=== PATIENT | female | born 1945 | race Caucasian/White ===

== ENCOUNTER 2019-11-04 20:11 | Inpatient (IN) | payer OTHER ==
[~2019-11-04] VITALS: Ht 167.6 cm; Wt 56.1 kg
--- NOTE | 2019-11-04 20:51 | NUR ---
STROKE ALERT CALLED OFF BY KIM JOHNSON
[2019-11-04 20:58] LABS: BASOPHILS % (AUTO) 0.3 % (0-1); EOSINOPHILS % (AUTO) 0.1 % (0-6); HEMATOCRIT 42.9 % (35.0-45.0); HEMOGLOBIN 14.1 g/dl (12.0-16.0); LYMPHOCYTES # (AUTO) 0.4 X10'3 (1.1-4.8); LYMPHOCYTES % (AUTO) 5.7 % (21-51); MEAN CORPUSCULAR HEMOGLOBIN 30.4 PG (27.0-31.0); MEAN CORPUSCULAR HGB CONC 32.9 g/dL (33.0-36.5); MEAN CORPUSCULAR VOLUME 92.5 FL (78-98); MEAN PLATELET VOLUME 9.4 FL (7.4-10.4); MONOCYTES # (AUTO) 0.4 X10'3 (0-0.9); MONOCYTES % (AUTO) 6.6 % (2-12); NEUTROPHILS # (AUTO) 5.7 X10'3 (1.8-7.7); NEUTROPHILS % (AUTO) 87.3 % (42-75); PLATELET COUNT 153 X10'3 (140-440); RED BLOOD COUNT 4.63 X10'6 (4.20-5.60); RED CELL DISTRIBUTION WIDTH 13.8 % (11.5-14.5); WHITE BLOOD COUNT 6.5 X10'3 (4.5-11.0)
[2019-11-04 21:14] LABS: ALANINE AMINOTRANSFERASE 16 U/L (12-78); ALBUMIN 3.6 G/DL (3.4-5.0); ALKALINE PHOSPHATASE 58 IU/L (46-116); ANION GAP 7 (8-16); ASPARTATE AMINO TRANSFERASE 14 U/L (10-37); BILIRUBIN,TOTAL 0.4 MG/DL (0.1-1.0); BLOOD UREA NITROGEN 17 MG/DL (7-18); BUN/CREATININE RATIO 20.5 (6.6-38.0); CALCIUM 9.2 MG/DL (8.5-10.1); CHLORIDE 101 MMOL/L (99-107); CREATININE 0.83 MG/DL (0.40-0.90); GLUCOSE 102 MG/DL (70-104); POTASSIUM 3.8 MMOL/L (3.5-5.1); SODIUM 139 MMOL/L (135-145); TOTAL PROTEIN 7.1 G/DL (6.4-8.2); eGFR 67 ML/MIN
[2019-11-04 21:17] LABS: TROPONIN I < 0.04 NG/ML (0.0-0.05)
[2019-11-04 21:23] LABS: PARTIAL THROMBOPLASTIN TIME 26 SECONDS (22-32)
[2019-11-04 22:06] LABS: CLARITY,URINE SLIGHTLY CLOUDY (Clear); COLOR,URINE YELLOW (Yellow); GLUCOSE, URINE NEGATIVE (Neg); KETONES,URINE NEGATIVE (Neg); LEUKOCYTE ESTERASE ,URINE NEGATIVE (Neg); NITRITES, URINE NEGATIVE (Neg); OCCULT BLOOD,URINE NEGATIVE (Neg); PROTEIN,URINE NEGATIVE (Neg); UROBILINOGEN,URINE 0.2 E.U/dL (0.2-1.0)
[2019-11-04 22:14] LABS: UA COLLECTION TYPE CLN CATCH MIDSTREAM
[2019-11-04 22:15] LABS: AMORPHOUS PHOSPHATES 2+; BACTERIA,URINE FEW /HPF (Neg); RBC,URINE NONE SEEN /HPF (0-2); SQUAMOUS EPITHELIAL CELL,UR FEW /LPF (FEW); WBC,URINE NONE SEEN /HPF (0-4)
[2019-11-04] MEDS ORDERED: ondansetron/PF 4mg/2ml inj IV PRN (23:50)
[2019-11-04] MEDS ORDERED: acetaminophen 325mg tablet PO PRN (23:50)
[2019-11-04] MEDS ORDERED: magnesium hydroxide 30ml (MOM) UD suspension PO PRN (23:50)
[2019-11-04] MEDS ORDERED: mag hydrox/Alum hydrox/simeth 30ml oral suspension PO PRN (23:50)
[2019-11-05] MEDS ORDERED: THYR90TA12 PO (00:13)
[2019-11-05] MEDS ORDERED: ESCI20TA PO (00:13)
[2019-11-05] MEDS ORDERED: CHOL400T57 PO (00:13)
[2019-11-05] MEDS ORDERED: VITA-268 PO (00:14)
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
[2019-11-05 02:00] VITALS: BP 173/89
--- NOTE | 2019-11-05 02:51 | NUR ---
patient calm now. offered her tea and she allowed MRSA swab and physical assessment. VS taken and patient laying down resting. Refused to have both upper rails up. only 1 side is up at this time, per her request.
[2019-11-05 06:00] VITALS: BP 148/70
--- NOTE | 2019-11-05 06:07 | NUR ---
Problems reprioritized. Patient report given, questions answered & plan of care reviewed with JONA Levy.
--- NOTE | 2019-11-05 06:10 | NUR ---
Patient in room ORTHO 4010. I have received report from JONA Marques and had the opportunity to ask questions and assume patient care.
[2019-11-05 06:32] LABS: BASOPHILS % (AUTO) 0.2 % (0-1); EOSINOPHILS % (AUTO) 0 % (0-6); HEMATOCRIT 43.5 % (35.0-45.0); HEMOGLOBIN 14.4 g/dl (12.0-16.0); LYMPHOCYTES # (AUTO) 0.3 X10'3 (1.1-4.8); LYMPHOCYTES % (AUTO) 5.7 % (21-51); MEAN CORPUSCULAR HEMOGLOBIN 30.6 PG (27.0-31.0); MEAN CORPUSCULAR HGB CONC 33.2 g/dL (33.0-36.5); MEAN CORPUSCULAR VOLUME 92.1 FL (78-98); MEAN PLATELET VOLUME 10.4 FL (7.4-10.4); MONOCYTES # (AUTO) 0.3 X10'3 (0-0.9); MONOCYTES % (AUTO) 4.4 % (2-12); NEUTROPHILS # (AUTO) 5.4 X10'3 (1.8-7.7); NEUTROPHILS % (AUTO) 89.7 % (42-75); PLATELET COUNT 150 X10'3 (140-440); RED BLOOD COUNT 4.72 X10'6 (4.20-5.60); RED CELL DISTRIBUTION WIDTH 13.9 % (11.5-14.5)
[2019-11-05 06:51] LABS: ALANINE AMINOTRANSFERASE 15 U/L (12-78); ALBUMIN 3.9 G/DL (3.4-5.0); ALKALINE PHOSPHATASE 65 IU/L (46-116); ANION GAP 9 (8-16); ASPARTATE AMINO TRANSFERASE 15 U/L (10-37); BILIRUBIN,TOTAL 0.6 MG/DL (0.1-1.0); BLOOD UREA NITROGEN 13 MG/DL (7-18); BUN/CREATININE RATIO 16.7 (6.6-38.0); CHLORIDE 100 MMOL/L (99-107); CREATININE 0.78 MG/DL (0.40-0.90); GLUCOSE 105 MG/DL (70-104); POTASSIUM 3.2 MMOL/L (3.5-5.1); SODIUM 138 MMOL/L (135-145); TOTAL PROTEIN 7.8 G/DL (6.4-8.2); eGFR 72 ML/MIN
[2019-11-05] MEDS: heparin, porcine 5000 units/ml vial SQ SCH ×2 (08:00→19:26)
[2019-11-05 10:00] VITALS: BP 140/70
[2019-11-05] MEDS ORDERED: magnesium Cl slow-release 64mg tablet PO PRN (10:25)
[2019-11-05] MEDS: K and/or MAG REPLACEMENT MC SCH ×2 (10:25→19:25)
[2019-11-05] MEDS ORDERED: potassium CL 10mEq/100ml bag 100 ML IV PRN (10:25)
[2019-11-05] MEDS ORDERED: potassium Cl 20 mEq SR tablet PO PRN (10:25)
[2019-11-05] MEDS ORDERED: magnesium 4gm in 100ml NS 100 ML IV PRN (10:25)
[2019-11-05] MEDS: potassium Cl 20 mEq SR tablet PO PRN ×2 (11:27→19:28)
[2019-11-05 18:00] VITALS: BP 143/85
[2019-11-05] MEDS ORDERED: LORazepam 2 mg/ml vial IV ONE (21:20)
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
[2019-11-05 22:00] VITALS: BP 143/76
--- NOTE | 2019-11-06 06:30 | NUR ---
0600 VITALS NOT DONE, PT REFUSED
--- NOTE | 2019-11-06 06:32 | NUR ---
Problems reprioritized. Patient report given, questions answered & plan of care reviewed with JONA Bustillo.
--- NOTE | 2019-11-06 06:39 | NUR ---
A teleneuro exam by the [facility] [place] was done last night around 20:30. The exam was done for acute AMS changes and the report from neurologist is still pending at this time. No report found in records at this time.
--- NOTE | 2019-11-06 06:44 | NUR ---
Patient in room ORTHO 4010A. I have received report from JONA Marques and had the opportunity to ask questions and assume patient care.
[2019-11-06 06:48] LABS: BASOPHILS % (AUTO) 0.3 % (0-1); EOSINOPHILS % (AUTO) 0 % (0-6); HEMATOCRIT 39.5 % (35.0-45.0); HEMOGLOBIN 13.1 g/dl (12.0-16.0); LYMPHOCYTES # (AUTO) 0.8 X10'3 (1.1-4.8); LYMPHOCYTES % (AUTO) 15.7 % (21-51); MEAN CORPUSCULAR HEMOGLOBIN 30.5 PG (27.0-31.0); MEAN CORPUSCULAR HGB CONC 33.3 g/dL (33.0-36.5); MEAN CORPUSCULAR VOLUME 91.6 FL (78-98); MEAN PLATELET VOLUME 9.8 FL (7.4-10.4); MONOCYTES # (AUTO) 0.6 X10'3 (0-0.9); MONOCYTES % (AUTO) 12.8 % (2-12); NEUTROPHILS # (AUTO) 3.6 X10'3 (1.8-7.7); NEUTROPHILS % (AUTO) 71.2 % (42-75); PLATELET COUNT 122 X10'3 (140-440); RED BLOOD COUNT 4.31 X10'6 (4.20-5.60); RED CELL DISTRIBUTION WIDTH 13.5 % (11.5-14.5)
[2019-11-06 06:58] LABS: ALANINE AMINOTRANSFERASE 13 U/L (12-78); ALBUMIN 3.2 G/DL (3.4-5.0); ALBUMIN/GLOBULIN RATIO 0.9 (1.1-1.5); ALKALINE PHOSPHATASE 50 IU/L (46-116); ANION GAP 8 (8-16); ASPARTATE AMINO TRANSFERASE 16 U/L (10-37); BILIRUBIN,TOTAL 0.3 MG/DL (0.1-1.0); BLOOD UREA NITROGEN 11 MG/DL (7-18); BUN/CREATININE RATIO 16.4 (6.6-38.0); CALCIUM 8.6 MG/DL (8.5-10.1); CHLORIDE 104 MMOL/L (99-107); CREATININE 0.67 MG/DL (0.40-0.90); GLUCOSE 93 MG/DL (70-104); MAGNESIUM 1.9 MG/DL (1.5-2.4); PHOSPHORUS 2.7 MG/DL (2.3-4.5); POTASSIUM 3.7 MMOL/L (3.5-5.1); SODIUM 140 MMOL/L (135-145); TOTAL CARBON DIOXIDE 27.6 MMOL/L (24-32); TOTAL PROTEIN 6.6 G/DL (6.4-8.2); eGFR 86 ML/MIN
[2019-11-06] MEDS: K and/or MAG REPLACEMENT MC SCH ×2 (07:16→19:38)
[2019-11-06] MEDS: heparin, porcine 5000 units/ml vial SQ SCH ×2 (08:00→19:38)
[2019-11-06 10:00] VITALS: BP 123/74
[2019-11-06] MEDS: ESCITALOPRAM OXALATE 5 MG TABLET PO SCH (10:45)
[2019-11-06] MEDS: vitamin B comp w/Vit. C tab 1 TAB TABLET PO SCH (10:45)
--- NOTE | 2019-11-06 14:20 | NUR ---
TELENEURO CONSULT DONE, JONA CANALES HELPED. PTS WAS ALSO BEDSIDE TO HELP ANSWER QUESTIONS. REPORT PENDING.
--- NOTE | 2019-11-06 15:26 | NUR ---
Page Sent PAGER ID: [phone] MESSAGE: [id number]: PEPPER RODRIGUES [id number]...PT TELENEURO CONSULT REPORT IS BACK
[2019-11-06 18:00] VITALS: BP 135/68
--- NOTE | 2019-11-06 18:17 | NUR ---
Problems reprioritized. Patient report given, questions answered & plan of care reviewed with JONA GOVEA.
--- NOTE | 2019-11-06 18:18 | NUR ---
Patient in room ORTHO 4010. I have received report from Iwona TENORIO and had the opportunity to ask questions and assume patient care.
[2019-11-06 22:00] VITALS: BP 168/83
[2019-11-07 06:00] VITALS: BP 158/79
--- NOTE | 2019-11-07 06:08 | NUR ---
Problems reprioritized. Patient report given, questions answered & plan of care reviewed with Iwona TENORIO.
--- NOTE | 2019-11-07 06:25 | NUR ---
Patient in room ORTHO 4009C. I have received report from JONA Patricia and had the opportunity to ask questions and assume patient care.
[2019-11-07 06:54] LABS: BASOPHILS % (AUTO) 0.4 % (0-1); EOSINOPHILS # (AUTO) 0.1 X10'3 (0-0.9); HEMATOCRIT 39.8 % (35.0-45.0); HEMOGLOBIN 13.1 g/dl (12.0-16.0); LYMPHOCYTES # (AUTO) 1.1 X10'3 (1.1-4.8); LYMPHOCYTES % (AUTO) 23.7 % (21-51); MEAN CORPUSCULAR HEMOGLOBIN 30.3 PG (27.0-31.0); MEAN PLATELET VOLUME 9.9 FL (7.4-10.4); MONOCYTES # (AUTO) 0.7 X10'3 (0-0.9); MONOCYTES % (AUTO) 14.8 % (2-12); NEUTROPHILS # (AUTO) 2.9 X10'3 (1.8-7.7); NEUTROPHILS % (AUTO) 59.1 % (42-75); PLATELET COUNT 143 X10'3 (140-440); RED BLOOD COUNT 4.33 X10'6 (4.20-5.60); RED CELL DISTRIBUTION WIDTH 13.8 % (11.5-14.5); WHITE BLOOD COUNT 4.8 X10'3 (4.5-11.0)
[2019-11-07 07:18] LABS: ALANINE AMINOTRANSFERASE 15 U/L (12-78); ALBUMIN 3.2 G/DL (3.4-5.0); ALBUMIN/GLOBULIN RATIO 0.9 (1.1-1.5); ALKALINE PHOSPHATASE 52 IU/L (46-116); ANION GAP 8 (8-16); ASPARTATE AMINO TRANSFERASE 15 U/L (10-37); BILIRUBIN,TOTAL 0.4 MG/DL (0.1-1.0); BLOOD UREA NITROGEN 12 MG/DL (7-18); BUN/CREATININE RATIO 19.7 (6.6-38.0); CALCIUM 9.1 MG/DL (8.5-10.1); CHLORIDE 104 MMOL/L (99-107); CREATININE 0.61 MG/DL (0.40-0.90); GLUCOSE 125 MG/DL (70-104); PHOSPHORUS 2.8 MG/DL (2.3-4.5); POTASSIUM 3.5 MMOL/L (3.5-5.1); SODIUM 141 MMOL/L (135-145); TOTAL CARBON DIOXIDE 28.8 MMOL/L (24-32); TOTAL PROTEIN 6.9 G/DL (6.4-8.2); eGFR > 90 ML/MIN
[2019-11-07] MEDS: vitamin B comp w/Vit. C tab 1 TAB TABLET PO SCH (07:46)
[2019-11-07] MEDS: ESCITALOPRAM OXALATE 5 MG TABLET PO SCH (07:47)
[2019-11-07] MEDS: K and/or MAG REPLACEMENT MC SCH (07:53)
[2019-11-07] MEDS: heparin, porcine 5000 units/ml vial SQ SCH (07:56)
--- NOTE | 2019-11-07 10:38 | NUR ---
SENT PAGE TO EEG
--- NOTE | 2019-11-07 12:37 | NUR ---
Meeting with Dr Og, pt and pt's , Evaristo, was agreed that they would wait on the lumbar puncture and that they would monitor for fever at home.
[2019-11-07] MEDS ORDERED: THY60T PO (12:58)
--- NOTE | 2019-11-07 14:47 | NUR ---
DC INSTRUCTIONS GIVEN TO PT & OKSANA WILSON. PT HAD NO IV. PT DRESSED AND WHEELED DOWN TO PRIVATE VEHICLE IN STABLE CONDITION.
== END 2019-11-07 13:30 | disposition home health service (06) | DRG 884 ==
LOC: ER 20:13 → ED HOLD 23:49 → OBSVTOIN 23:49 → ED HOLD 23:51 → UNDOADMOB 23:51 → ORTHO 4S 11-05 01:45 → ED HOLD 11-05 01:45 → ORTHO 4S 11-06 20:20
PROVIDERS: ADMIT Internal Medicine; ATTEND Family Medicine
PROC: 4A10X4Z Monitoring of Central Nervous Electrical Activity, External Approach (ICD-10-PCS; principal; 2019-11-07)
DX: F03.90 Unspecified dementia, unspecified severity, without behavioral disturbance, psychotic disturbance, mood disturbance, and anxiety (principal); E78.5 Hyperlipidemia, unspecified; E03.9 Hypothyroidism, unspecified; E05.90 Thyrotoxicosis, unspecified without thyrotoxic crisis or storm; E87.6 Hypokalemia; F41.8 Other specified anxiety disorders; Z20.828 Contact with and (suspected) exposure to other viral communicable diseases; Z79.899 Other long term (current) drug therapy
CPT/HCPCS: 36415; 70544; 70551; 71045; 80053; 81001; 82140; 82607; 82948; 83605; 83735; 84100; 84145; 84439; 84443; 84484; 85025; 85610; 85730; 86592; 87040; 87081; 87635; 93005; 93306; 93880; 95816; 99285; G0378; J1644; J2060

== ENCOUNTER 2021-03-18 11:35 | Emergency (ER) | payer MEDICARE, OTHER ==
[~2021-03-18] VITALS: Ht 167.6 cm; Wt 59.9 kg
[~2021-03-18 11:35] MED LIST: CHOL400T57 PO; ESCI20TA PO; VITA-268 PO
[2021-03-18 12:45] VITALS: BP 167/78
== END 2021-03-18 14:00 | disposition home or self-care (01) ==
LOC: ER 11:36
DX: S00.33XA Contusion of nose, initial encounter (principal); S50.311A Abrasion of right elbow, initial encounter; S09.90XA Unspecified injury of head, initial encounter; F03.91 Unspecified dementia, unspecified severity, with behavioral disturbance; E03.9 Hypothyroidism, unspecified; F31.9 Bipolar disorder, unspecified; W18.30XA Fall on same level, unspecified, initial encounter; Y93.89 Activity, other specified; Y92.89 Other specified places as the place of occurrence of the external cause; Y99.8 Other external cause status
CPT/HCPCS: 70450; 70486; 72125; 99284

== ENCOUNTER 2021-11-17 19:33 | Emergency (ER) | payer OTHER ==
[~2021-11-17] VITALS: Ht 167.6 cm; Wt 61.4 kg
[2021-11-17 20:12] LABS: BASOPHILS % (AUTO) 0.8 % (0-1); EOSINOPHILS % (AUTO) 0.7 % (0-6); HEMATOCRIT 41.9 % (35.0-45.0); HEMOGLOBIN 13.8 g/dl (12.0-16.0); LYMPHOCYTES # (AUTO) 1.2 X10'3 (1.1-4.8); LYMPHOCYTES % (AUTO) 28.3 % (21-51); MEAN CORPUSCULAR HGB CONC 32.9 g/dL (33.0-36.5); MEAN CORPUSCULAR VOLUME 87.9 FL (78-98); MEAN PLATELET VOLUME 9.8 FL (7.4-10.4); MONOCYTES # (AUTO) 0.4 X10'3 (0-0.9); MONOCYTES % (AUTO) 9.6 % (2-12); NEUTROPHILS # (AUTO) 2.5 X10'3 (1.8-7.7); NEUTROPHILS % (AUTO) 60.6 % (42-75); PLATELET COUNT 174 X10'3 (140-440); RED BLOOD COUNT 4.77 X10'6 (4.20-5.60); RED CELL DISTRIBUTION WIDTH 13.4 % (11.5-14.5); WHITE BLOOD COUNT 4.1 X10'3 (4.5-11.0)
[2021-11-17 20:38] LABS: ALANINE AMINOTRANSFERASE 21 U/L (12-78); ALBUMIN 3.8 G/DL (3.4-5.0); ALKALINE PHOSPHATASE 62 IU/L (46-116); ANION GAP 7 (8-16); ASPARTATE AMINO TRANSFERASE 17 U/L (10-37); BILIRUBIN,TOTAL 0.4 MG/DL (0.1-1.0); BLOOD UREA NITROGEN 13 MG/DL (7-18); BUN/CREATININE RATIO 24.1 (6.6-38.0); CALCIUM 8.9 MG/DL (8.5-10.1); CHLORIDE 104 MMOL/L (99-107); CREATININE 0.54 MG/DL (0.40-0.90); GLUCOSE 90 MG/DL (70-104); LIPASE 86 U/L (73-393); POTASSIUM 4.1 MMOL/L (3.5-5.1); SODIUM 141 MMOL/L (135-145); TOTAL CARBON DIOXIDE 30.2 MMOL/L (24-32); TOTAL PROTEIN 7.6 G/DL (6.4-8.2); eGFR > 90 ML/MIN
[2021-11-18 05:02] VITALS: BP 164/75
[2021-11-18 06:22] LABS: CLARITY,URINE SLIGHTLY CLOUDY (Clear); COLOR,URINE YELLOW (Yellow); GLUCOSE, URINE NEGATIVE (Neg); KETONES,URINE TRACE mg/dl (Neg); LEUKOCYTE ESTERASE ,URINE TRACE (Neg); NITRITES, URINE NEGATIVE (Neg); OCCULT BLOOD,URINE NEGATIVE (Neg); PH,URINE 6.5 (4.8-8.0); PROTEIN,URINE NEGATIVE (Neg); UROBILINOGEN,URINE 0.2 E.U/dL (0.2-1.0)
[2021-11-18 06:40] LABS: UA COLLECTION TYPE CLN CATCH MIDSTREAM
[2021-11-18 06:43] LABS: BACTERIA,URINE 4+ /HPF (Neg); RBC,URINE NONE SEEN /HPF (0-2); SQUAMOUS EPITHELIAL CELL,UR FEW /LPF (FEW)
== END 2021-11-18 07:53 | disposition home or self-care (01) ==
LOC: ER 19:34
DX: S00.81XD Abrasion of other part of head, subsequent encounter (principal); F03.90 Unspecified dementia, unspecified severity, without behavioral disturbance, psychotic disturbance, mood disturbance, and anxiety; E03.9 Hypothyroidism, unspecified; F32.9 Major depressive disorder, single episode, unspecified; Z79.899 Other long term (current) drug therapy; W18.39XD Other fall on same level, subsequent encounter
CPT/HCPCS: 36415; 70450; 76700; 80053; 81001; 83690; 85025; 87077; 87088; 87186; 99284; A4353

== ENCOUNTER 2023-01-25 13:37 | Emergency (ER) | payer OTHER ==
[~2023-01-25] VITALS: Ht 165.1 cm; Wt 63.6 kg
--- NOTE | 2023-01-25 13:59 | NUR ---
Pt is ref to have BP cuff on. Pt is conts to climb out of bed.
[2023-01-25 15:59] LABS: BASOPHILS % (AUTO) 0.6 % (0-1); EOSINOPHILS % (AUTO) 0.7 % (0-6); HEMOGLOBIN 12.4 g/dl (12.0-16.0); LYMPHOCYTES # (AUTO) 1.1 X10'3 (1.1-4.8); LYMPHOCYTES % (AUTO) 26.9 % (21-51); MEAN CORPUSCULAR HEMOGLOBIN 30.1 PG (27.0-31.0); MEAN CORPUSCULAR HGB CONC 33.4 g/dL (33.0-36.5); MEAN CORPUSCULAR VOLUME 89.9 FL (78-98); MEAN PLATELET VOLUME 9.5 FL (7.4-10.4); MONOCYTES # (AUTO) 0.5 X10'3 (0-0.9); NEUTROPHILS # (AUTO) 2.4 X10'3 (1.8-7.7); NEUTROPHILS % (AUTO) 59.8 % (42-75); PLATELET COUNT 149 X10'3 (140-440); RED BLOOD COUNT 4.11 X10'6 (4.20-5.60); RED CELL DISTRIBUTION WIDTH 14.2 % (11.5-14.5)
[2023-01-25 16:07] LABS: ALANINE AMINOTRANSFERASE 16 U/L (12-78); ALBUMIN 3.2 G/DL (3.4-5.0); ALBUMIN/GLOBULIN RATIO 0.9 (1.1-1.5); ALKALINE PHOSPHATASE 113 IU/L (46-116); ANION GAP 6 (8-16); APTT 28 SECONDS (22-32); ASPARTATE AMINO TRANSFERASE 15 U/L (10-37); BILIRUBIN,TOTAL 0.3 MG/DL (0.1-1.0); BLOOD UREA NITROGEN 20 MG/DL (7-18); BUN/CREATININE RATIO 31.3 (10.0-20.0); CALCIUM 8.9 MG/DL (8.5-10.1); CHLORIDE 101 MMOL/L (99-107); CREATININE 0.64 MG/DL (0.40-0.90); GLUCOSE 107 MG/DL (70-104); POTASSIUM 4.1 MMOL/L (3.5-5.1); PROTHROMBIN TIME 10.3 SECONDS (9.0-12.0); SODIUM 140 MMOL/L (135-145); TOTAL CARBON DIOXIDE 33.3 MMOL/L (24-32); TOTAL PROTEIN 6.6 G/DL (6.4-8.2); eCRCL 65 ML/MIN; eGFR 90 ML/MIN
[2023-01-25] MEDS: LORazepam 2 mg/ml vial IV ONE ×2 (16:38→19:44)
[2023-01-25] MEDS ORDERED: LORazepam 1 MG tablet PO STA ×2 (16:38→17:44)
[2023-01-25] MEDS ORDERED: haloperidol lactate 5mg/ml inj IM STA (18:39)
--- NOTE | 2023-01-25 20:09 | NUR ---
Pt bp at 196/104, notified
[2023-01-25 20:16] VITALS: BP 179/95; PULSE 66; RESP 14; O2SAT 97
[2023-01-25 23:13] VITALS: TEMP 98.1
== END 2023-01-25 23:19 | disposition admitted as inpatient to this hospital (09) ==
LOC: ER 13:38
DX: S00.03XA Contusion of scalp, initial encounter (principal); E03.9 Hypothyroidism, unspecified; Z79.899 Other long term (current) drug therapy; W19.XXXA Unspecified fall, initial encounter; Y93.89 Activity, other specified; Y92.89 Other specified places as the place of occurrence of the external cause; Y99.8 Other external cause status
CPT/HCPCS: 36415; 70450; 71045; 72125; 80053; 85025; 85610; 85730; 93005; 96372; 96374; 99285; J1630; J2060